=== PATIENT | male | born 1945 | race Caucasian/White ===

== ENCOUNTER 2021-05-04 09:15 | Outpatient (CLI) | payer OTHER | END 2021-05-04 09:18 | disposition home or self-care (01) | LOC: PPH VACUNA 09:15 | PROVIDERS: ATTEND Emergency Medicine Pediatric Emergency Medicine | DX: Z23 Encounter for immunization (principal) ==

== ENCOUNTER → 2022-02-23 | Outpatient (CLI) | payer OTHER | END | disposition home or self-care (01) | LOC: LAB 15:42 | DX: N39.0 Urinary tract infection, site not specified (principal) ==

== ENCOUNTER 2022-03-01 12:03 | Outpatient (CLI) | payer OTHER | END 2022-03-01 12:04 | disposition home or self-care (01) | LOC: LAB 12:03 | PROVIDERS: ATTEND Urology | DX: N30.00 Acute cystitis without hematuria (principal) ==

== ENCOUNTER → 2024-10-08 | Emergency (ER) | payer OTHER ==
[~2024-10-08] VITALS: Ht 182.9 cm; Wt 90.7 kg
[~2024-10-08] MED LIST: AMLODIPINE BESYL5 MG PO; FAMOtidine 10 MG/ML (4ML VIAL) IV PUSH ONE; HYDRALAZINE HCL50 MG; IRBESARTAN300 MG; LevETIRAcetam 500 MG/5 ML VIAL IV SCH; METOPROLOL SUCC50 MG PO; OMEPRAZOLE20 MG PO; TRAMADOL HCL 50 MG TABLET PO ONE; XARELTO20 MG PO
[2024-10-08 11:04] LABS: ABG PH 7.414 (7.35-7.45); ABG PO2 90.9 mmHg (80-100); ABG pCO2 35.5 mmHg (35-45); BASE EXCESS -1.7 mmol/l; BICARBONATE 22.2 mmol/l (23-25); SaO2 97.1 %; Tco2 23.3 mmol/l
[2024-10-08 12:26] LABS: ALBUMIN 3.5 gm/dL (3.4-5.0); BILIRUBIN TOTAL 0.85 mg/dL (0.3-1.2); CALCIUM 9.2 mg/dL (8.5-10.1); CREATININE SERUM 1.28 mg/dL (0.70-1.30); GFR 54.35; GLOBULINA 3.2 G/DL (2.4-3.5); POTASSIUM 4.51 mEq/L (3.5-5.1); TOTAL PROTEIN 6.7 gm/dL (6.4-8.2)
[2024-10-08 12:28] LABS: INR 0.98; PARTIAL THROMBOPLASTIN TIME 25.2 SECONDS (22.0-34.0); PROTHROMBIN TIME 10.7 SECONDS (9.0-11.5)
[2024-10-08 12:51] LABS: HEMOGLOBIN 13.8 g/dL (13-16.00); MEAN CELL VOLUME 92.9 fL (80.0-100.00); MEAN CORPUSCULAR HEMOGLOBIN 32.1 pg (27.00-32.0); MEAN CORPUSCULAR HGB CONC 34.6 g/dl (32.0-36.0); PLATELET COUNT 150 K/uL (150-450); RED BLOOD COUNT 4.31 M/uL (4.00-6.00); RED CELL DISTRIBUTION WIDTH 14.4 % (11.5-14.5)
[2024-10-08 14:13] LABS: URINE APPEARANCE Clear; URINE BILIRRUBIN Negative (NEGATIVE); URINE BLOOD Negative; URINE COLOR Yellow; URINE GLUCOSE Negative (NEGATIVE); URINE KETONE Negative (NEGATIVE); URINE LEUKOCYTE Negative; URINE NITRATE Negative; URINE PROTEIN Negative (NEGATIVE); URINE UROBILINOGEN 0.2 E.U./dl
[2024-10-08 14:17] LABS: URINE BACTERIA 13.4 uL (0.0-1933); URINE EPITHELIAL CELLS 2.3 uL (0.0-38.8); URINE RBC 2.6 uL (0.0-20.8)
[2024-10-08 15:00] LABS: allen test SATISFACTORY; o2 21 %; puncture site RADIAL RIGHT
[2024-10-08 15:17] LABS: URINE WBC 1.7 uL (0.0-23.2)
== END | disposition designated cancer center or children's hospital (05) ==
LOC: ER 09:47
PROVIDERS: General Practice
DX: S89.80XA Other specified injuries of unspecified lower leg, initial encounter (principal); W10.8XXA Fall (on) (from) other stairs and steps, initial encounter; Y93.89 Activity, other specified; Y92.89 Other specified places as the place of occurrence of the external cause; Y99.8 Other external cause status; R42 Dizziness and giddiness; I10 Essential (primary) hypertension
CPT/HCPCS: 36415; 70450; 71045; 72125; 72141; 72170; 82803; 93005; 93041; 96365; 99285; J3490

== ENCOUNTER 2024-10-11 10:31 | Emergency (ER) | payer OTHER ==
[~2024-10-11] VITALS: Ht 152.4 cm; Wt 90.7 kg
[~2024-10-11 10:31] MED LIST changes: -FAMOtidine 10 MG/ML (4ML VIAL) IV PUSH ONE; -LevETIRAcetam 500 MG/5 ML VIAL IV SCH; -TRAMADOL HCL 50 MG TABLET PO ONE
[2024-10-11 13:26] LABS: ERYTHROCYTE SEDIMENTATION RATE 14 mm/hr
[2024-10-11 13:29] LABS: HEMATOCRIT 40.7 % (39.0-48.0); HEMOGLOBIN 13.9 g/dL (13-16.00); MEAN CELL VOLUME 94.3 fL (80.0-100.00); MEAN CORPUSCULAR HEMOGLOBIN 32.3 pg (27.00-32.0); MEAN CORPUSCULAR HGB CONC 34.2 g/dl (32.0-36.0); PLATELET COUNT 146 K/uL (150-450); RED BLOOD COUNT 4.31 M/uL (4.00-6.00); RED CELL DISTRIBUTION WIDTH 13.9 % (11.5-14.5)
[2024-10-11 14:01] LABS: ALBUMIN 3.5 gm/dL (3.4-5.0); BILIRUBIN TOTAL 1.24 mg/dL (0.3-1.2); CALCIUM 9.2 mg/dL (8.5-10.1); CREATININE SERUM 1.43 mg/dL (0.70-1.30); GFR 47.83; GLOBULINA 3.5 G/DL (2.4-3.5); POTASSIUM 4.4 mEq/L (3.5-5.1)
[2024-10-11] MEDS ORDERED: ACETAMINOPHEN 500 MG GEL..CAP PO ONE (16:45)
[2024-10-11] MEDS ORDERED: 0.9 % SODIUM CHLORIDE 500 ML IV ONE (16:45)
[2024-10-11] MEDS ORDERED: ORPHENADRINE CITRATE 30 MG/ML AMPUL IM ONE (16:45)
== END 2024-10-11 18:30 | disposition home or self-care (01) ==
LOC: ER 10:31
PROVIDERS: Emergency Medicine
DX: M54.10 Radiculopathy, site unspecified (principal); M79.10 Myalgia, unspecified site; S12.8XXA Fracture of other parts of neck, initial encounter; W19.XXXA Unspecified fall, initial encounter; Y93.89 Activity, other specified; Y92.89 Other specified places as the place of occurrence of the external cause; Y99.8 Other external cause status
CPT/HCPCS: 36415; 70450; 93005; 96365; 96372; 99284; J2360; J7042

== ENCOUNTER 2024-10-14 18:26 | Inpatient (IN) | payer OTHER ==
[~2024-10-14] VITALS: Ht 177.8 cm; Wt 90.7 kg
[2024-10-14] MEDS ORDERED: 0.9 % SODIUM CHLORIDE 1,000 ML IV SCH (19:15)
[2024-10-14] MEDS ORDERED: hydrALAZINE HCL 20 MG VIAL IV PRN (19:30)
[2024-10-14] MEDS ORDERED: PANTOPRAZOLE SODIUM 40 MG TABLET.DR PO SCH (21:00)
[2024-10-14] MEDS ORDERED: ENOXAPARIN SODIUM 60 MG/0.6 ML SYRINGE SUBCUTANEO SCH (21:00)
[2024-10-14 21:27] LABS: HEMATOCRIT 42.5 % (39.0-48.0); HEMOGLOBIN 14.6 g/dL (13-16.00); MEAN CELL VOLUME 93.2 fL (80.0-100.00); MEAN CORPUSCULAR HGB CONC 34.4 g/dl (32.0-36.0); PLATELET COUNT 176 K/uL (150-450); RED BLOOD COUNT 4.56 M/uL (4.00-6.00); RED CELL DISTRIBUTION WIDTH 13.9 % (11.5-14.5)
[2024-10-14 21:31] VITALS: BP 159/87; O2SAT 96
[2024-10-14 21:59] LABS: BILIRUBIN TOTAL 0.87 mg/dL (0.3-1.2); CALCIUM 9.5 mg/dL (8.5-10.1); CREATININE SERUM 1.43 mg/dL (0.70-1.30); GFR 47.83; GLOBULINA 3.3 G/DL (2.4-3.5); POTASSIUM 4.54 mEq/L (3.5-5.1); TOTAL PROTEIN 7.3 gm/dL (6.4-8.2); TSH 2.37 uIU/mL (0.358-3.74)
[2024-10-14 22:09] LABS: PROSTATIC SPECIFIC ANTIGEN 6.48 NG/ML (0.010-4.00)
[2024-10-15 01:02] VITALS: BP 150/77; O2SAT 96
[2024-10-15 09:00] VITALS: BP 173/90; O2SAT 97
[2024-10-15] MEDS ORDERED: AVALIDE PO SCH (09:00)
[2024-10-15] MEDS ORDERED: METOPROLOL SUCCINATE 50 MG TAB.SR.24H PO SCH (09:00)
[2024-10-15 09:58] LABS: PH,URINE 5.5 (5.0-8.0); URINE APPEARANCE Clear; URINE BILIRRUBIN Negative (NEGATIVE); URINE BLOOD Negative; URINE COLOR Yellow; URINE GLUCOSE Negative (NEGATIVE); URINE KETONE Negative (NEGATIVE); URINE LEUKOCYTE Negative; URINE NITRATE Negative; URINE PROTEIN Negative (NEGATIVE)
[2024-10-15 10:01] LABS: URINE EPITHELIAL CELLS 1.8 uL (0.0-38.8)
[2024-10-15 10:12] LABS: URINE RBC 0.7 uL (0.0-20.8); URINE WBC 1.2 uL (0.0-23.2)
[2024-10-15] MEDS ORDERED: HYDROCHLOROTHIAZIDE 12.5 MG CAPSULE PO NR (12:00)
[2024-10-15] MEDS ORDERED: IRBESARTAN 300 MG TABLET PO NR (12:00)
[2024-10-15] MEDS ORDERED: KETOROLAC TROMETHAMINE 30 MG VIAL IV PRN (18:00)
[2024-10-15 18:09] VITALS: BP 190/92
[2024-10-15 19:20] VITALS: BP 140/90
[2024-10-16 02:49] VITALS: BP 173/82; O2SAT 96
[2024-10-16] MEDS ORDERED: SODIUM CHLORIDE 0.45 % 1,000 ML IV SCH (08:30)
[2024-10-16] MEDS ORDERED: TAMSULOSIN HCL 0.4 MG CAP PO SCH (09:00)
[2024-10-16] MEDS ORDERED: HYDROCHLOROTHIAZIDE 12.5 MG CAPSULE PO SCH (09:00)
[2024-10-16] MEDS ORDERED: IRBESARTAN 300 MG TABLET PO SCH (09:00)
[2024-10-16] MEDS ORDERED: RIVAROXABAN 20 MG TABLET PO SCH (09:00)
[2024-10-16] MEDS ORDERED: METOPROLOL SUCCINATE 100 MG TAB.SR.24H PO SCH (09:00)
[2024-10-16] MEDS ORDERED: FINASTERIDE 5 MG TABLET PO SCH (09:00)
[2024-10-16 15:32] LABS: CALCIUM 8.9 mg/dL (8.5-10.1); CREATININE SERUM 1.23 mg/dL (0.70-1.30); GFR 56.91; PHOSPHOROUS 2.7 mg/dL (2.5-4.9); POTASSIUM 4.25 mEq/L (3.5-5.1)
[2024-10-16 15:54] LABS: MAGNESIUM 1.3 mg/dL (1.8-2.4)
[2024-10-16] MEDS ORDERED: MAGNESIUM SULFATE 50% 1,000 MG/2 ML VIAL IM NR (16:00)
[2024-10-16] MEDS ORDERED: TRAMADOL HCL 50 MG TABLET PO PRN (19:00)
[2024-10-16 19:28] VITALS: BP 175/90
[2024-10-16] MEDS ORDERED: ORPHENADRINE CITRATE 100 MG TABLET PO NR (20:00)
[2024-10-16] MEDS ORDERED: AMLODIPINE BESYLATE 5 MG TABLET PO SCH (20:12)
[2024-10-16 21:22] VITALS: BP 141/77
[2024-10-17 02:23] VITALS: BP 166/93; O2SAT 96
[2024-10-17] MEDS ORDERED: TAMS0.4C PO (08:03)
[2024-10-17] MEDS ORDERED: NORFLEX100MG PO (08:03)
[2024-10-17] MEDS ORDERED: XARELTO20 MG PO (08:03)
[2024-10-17] MEDS ORDERED: AMLODIPINE BESYL5 MG PO (08:04)
[2024-10-17] MEDS ORDERED: TOPROL XL100 M1 PO (08:05)
[2024-10-17] MEDS ORDERED: TRAMADOL HCL50 MG PO (08:05)
[2024-10-17] MEDS ORDERED: PANTOPRAZOLE SO40 MG PO (08:06)
[2024-10-17] MEDS ORDERED: FINASTERIDE5 MG PO (08:06)
[2024-10-17] MEDS ORDERED: VALSARTAN-HCTZ1 EAC4 PO (08:07)
[2024-10-17] MEDS ORDERED: ORPHENADRINE CITRATE 100 MG TABLET PO SCH (09:00)
[2024-10-17 09:09] VITALS: BP 138/80; O2SAT 96
[2024-10-18 09:05] LABS: % FREE PSA 17.1 % (.); free psa 0.99 ng/mL; total psa 5.8 ng/mL (0.0-4.0)
== END 2024-10-17 09:57 | disposition home or self-care (01) | DRG 303 ==
LOC: MEDI 18:26
PROVIDERS: ADMIT Internal Medicine; ATTEND Internal Medicine
PROC: B030ZZZ Magnetic Resonance Imaging (MRI) of Brain (ICD-10-PCS; principal; 2024-10-14)
PROC: B24BZZZ Ultrasonography of Heart with Aorta (ICD-10-PCS; 2024-10-14)
PROC: 4A12X4Z Monitoring of Cardiac Electrical Activity, External Approach (ICD-10-PCS; 2024-10-14)
PROC: B345ZZZ Ultrasonography of Bilateral Common Carotid Arteries (ICD-10-PCS; 2024-10-15)
PROC: C22YYZZ Tomographic (Tomo) Nuclear Medicine Imaging of Heart using Other Radionuclide (ICD-10-PCS; 2024-10-15)
PROC: BW21ZZZ Computerized Tomography (CT Scan) of Abdomen and Pelvis (ICD-10-PCS; 2024-10-16)
DX: I25.2 Old myocardial infarction (principal); S12.190A Other displaced fracture of second cervical vertebra, initial encounter for closed fracture; R55 Syncope and collapse; M54.2 Cervicalgia; W13.3XXA Fall through floor, initial encounter; Y93.89 Activity, other specified; Y92.59 Other trade areas as the place of occurrence of the external cause; Y99.8 Other external cause status; I48.91 Unspecified atrial fibrillation; I11.9 Hypertensive heart disease without heart failure; N40.0 Benign prostatic hyperplasia without lower urinary tract symptoms; I34.0 Nonrheumatic mitral (valve) insufficiency
CPT/HCPCS: 240; 70544

== ENCOUNTER 2025-01-06 09:23 | Emergency (ER) | payer OTHER ==
[~2025-01-06] VITALS: Ht 177.8 cm; Wt 88.5 kg
[~2025-01-06 09:23] MED LIST changes: +FINASTERIDE5 MG PO; +NORFLEX100MG PO; +PANTOPRAZOLE SO40 MG PO; +TAMS0.4C PO; +TOPROL XL100 M1 PO; +TRAMADOL HCL50 MG PO; +VALSARTAN-HCTZ1 EAC4 PO
[2025-01-06 11:03] LABS: BASO % 0.6 % (0.1-1.2); EOS # 0.16 (0.04-0.54); EOS % 1.7 % (0.7-7.0); HEMATOCRIT 34.6 % (40.1-51.0); HEMOGLOBIN 11.9 g/dL (13.7-17.5); LYMPH # 1.55 (1.18-3.74); LYMPH % 16.1 % (19.3-53.1); MEAN CORPUSCULAR HEMOGLOBIN 31.6 pg (25.6-32.2); MONO # 0.93 (0.24-0.82); MONO % 9.7 % (4.7-12.5); NEUT # 6.63 (1.56-6.13); NEUT % 68.8 % (34.0-71.1); PLATELET COUNT 161 K/uL (163-369); RED BLOOD COUNT 3.76 M/uL (4.63-6.08); RED CELL DISTRIBUTION WIDTH 14.2 % (11.6-14.4)
[2025-01-06 11:38] LABS: COVID-19 AG NEGATIVE (NEGATIVE)
[2025-01-06 11:39] LABS: INFLUENZA A AG NEGATIVE (NEGATIVE); INFLUENZA B AG NEGATIVE (NEGATIVE)
[2025-01-06] MEDS ORDERED: ACETAMINOPHEN500 M1 PO (12:36)
[2025-01-06] MEDS ORDERED: GILTUSS COUGH-118 M1 PO (12:36)
[2025-01-06] MEDS ORDERED: TOBRADEX OP (12:36)
[2025-01-06] MEDS ORDERED: ZITHROMAX TRI-500 MG PO (12:36)
== END 2025-01-06 12:47 | disposition home or self-care (01) ==
LOC: ER 09:23
PROVIDERS: Preventive Medicine Public Health & General Preventive Medicine
DX: J06.9 Acute upper respiratory infection, unspecified (principal); Z20.822 Contact with and (suspected) exposure to COVID-19; I10 Essential (primary) hypertension